=== PATIENT | male | born 1980 | race Caucasian/White ===

== ENCOUNTER 2025-01-17 18:56 | Emergency (ER) | payer MEDICAID, SELFPAY ==
[2025-01-17] VITALS (8 sets, daily range): BP systolic 128; BP diastolic 87; PULSE 65–82; RESP 15–27; TEMP 36.7; O2SAT 94–97; BMI 33.4
--- OUTSIDE RECORDS SUMMARY | 2025-01-17 18:58 | XMS_ITS | Clinical Summary ---
Author Organization [facility] Address [address] [place] [address] Care Team Providers Care Caustic Room Attendant Name Role Phone Pcp, No Unavailable Unavailable Jaydon Coleman Unavailable Christiano Carpenter DO Primary Care Provider [phone] Allergies Active Allergy Reactions Criticality Noted Date Comments Colchicine Stomach Upset 12/14/2023 Medications naproxen (NAPROSYN) 500 mg tabletIndicatio ns:History of gout Take 1 Tablet (500 mg) by mouth two times daily. 60 Tablet 1 11/29/2023 Active cyclobenzaprine (FLEXERIL) 10 mg tabletIndicatio ns:Acute midline low back pain without sciatica Take 1 Tablet (10 mg) by mouth at bedtime if needed for Muscle Spasm. 30 Tablet 5 08/02/2024 Active Active Problems Problem Noted Date Diagnosed Date Right lateral epicondylitis 12/12/2018 Immunizations Immunization Administration Dates Next Due Hepatitis B (Adult) 09/25/2005 Tdap 03/10/2023,12/05/2009 Family History Medical History Relation Name Comments Anesthesia Problem No Family History Blood Disease No Family History Social History Tobacco Use Types Packs/Day Years Used Date Smoking Tobacco: Former Cigarettes Smokeless Tobacco: Never Tobacco Cessation:Counseling Given: Not Answered Comments:The patient reports he quit smoking 200 days ago Antonio Rawls LPN .................... 08/02/2024 12:13 PM The patient also reports he quit drinking alcohol 55 days ago Antonio RuizBeto PORTILLO .................... 08/02/2024 12:13 PM Alcohol Use Standard Drinks/Week Comments Not Currently 0 (1 standard drink = 0.6 oz pur e alcohol) 5 per week PHQ-2 Answer Date Recorded PHQ-2 TOTAL SCORE 0 08/02/2024 Social Connections Answer Date Recorded Frequency of Communication with Friends and Fami ly Not on file 09/06/2021 Financial Resource Strain Answer Date R ecorded Difficulty of Paying Living Expenses Not on file 09/06/2021 Difficulty of Paying Living Expenses Not on file 09/06/2021 Interpersonal Safety Answer Date Record ed Are you being hit, kicked, p ushed or yelled at (see row info)? 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 Gender Identity Not on file Sexual Orientation Not on file Obstetrics History Last Filed Vital Signs Vital Sign Reading Time Taken Comments Blood Pressure 118/70 08/02/2024 12:14 PM DONOR SERVICES MANAGER Pulse 100 08/02/2024 12:14 PM DONOR SERVICES MANAGER Temperature 36.7 C (98.1 F) 06/18/2024 8:13 PM CDT Respiratory Rate 18 06/18/2024 8:13 PM CDT Oxygen Saturation 96% 08/02/2024 12:14 PM DONOR SERVICES MANAGER Inhaled Oxygen Concentration - - Weight 111.6 kg (246 lb) 08/02/2024 12:14 PM DONOR SERVICES MANAGER Height 188 cm (6' 2) 08/02/2024 12:14 PM DONOR SERVICES MANAGER Body Mass Index 31.58 08/02/2024 12:14 PM DONOR SERVICES MANAGER Plan of Treatment Health Maintenance Due Date Last Done Comments HIV for age 15-65 1997 Hepatitis C screening for age 18-79 2000 Lipids for age 35-44 2017 COVID-19 vaccine series ( season) 2024 Influenza Vaccine (Season Ended) 2025 BMI (ht and wt on same day) for age 18+ 08/02/2025 08/02/2024, 12/13/2023, 11/29/2023, Additional history exists Depression screening for age 12+ 08/02/2025 08/02/2024 Tetanus booster 03/10/2033 03/10/2023, 12/05/2009 Tdap Completed 03/10/2023, 12/05/2009 Pneumococcal series for age 6-49 Aged Out No longer eligible based on patient's age to complete this topic Insurance [facility] Care Teams Caustic Room Attendant Relationship Specialty [place] [id number] [place] [address] PCP - General Family Practice 08/01/24 Pcp, No . 08/12/17 Jaydon Coleman MBBS [facility] [place] [address] Rheumatology 12/21/23
[2025-01-17] MEDS: 0.9 % SODIUM CHLORIDE 1000 ml 1,000 ML IV ×2 (19:10→19:30)
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
[2025-01-17 19:27] LABS: Basophils Absolute Auto 0.02 K/uL (0.00-0.30); Basophils Percent Auto 0.3 % (0.0-3.0); Eosinophils Absolute Auto 0.18 K/uL (0.00-0.50); Eosinophils Percent Auto 2.8 % (0.0-7.0); Hematocrit* 40.6 % (37.0-53.0); Hemoglobin* 13.6 gm/dL (13.5-17.5); Immature Granulocytes Abs Auto 0.01 K/uL (0.00-0.30); Immature Granulocytes Pct Auto 0.2 %; Lymphocytes Percent Auto 44.7 % (20-44); Mean Corpuscular HGB Conc 34 gm/dL (32-36); Mean Corpuscular Hemoglobin 30 pg (26-34); Mean Corpuscular Volume 90 fL (80-100); Monocytes Percent Auto 7.1 % (0.0-11.0); Neutrophils Absolute Auto 2.89 K/uL (1.7-7.0); Neutrophils Percent Auto 44.9 % (42.0-72.0); Platelet Count* 260 K/uL (140-440); Red Blood Count* 4.49 m/uL (4.30-5.90); White Blood Count* 6.44 K/uL (4.50-11.00)
[2025-01-17 19:28] LABS: Slide Review Reflex No
[2025-01-17 19:40] LABS: Albumin* 4.5 g/dL (3.3-5.0); Chloride* 108 mmol/L (96-114); Sodium* 140 mmol/L (135-149)
[2025-01-17 19:42] LABS: Blood Urea Nitrogen* 18 mg/dL (5-24); Creatinine* 1.1 mg/dL (0.5-1.5); Est. Creatinine Clearance* 101.71; Estimated Glomerular Filt Rate 86 ml/min
[2025-01-17 19:43] LABS: Alanine Aminotransferase* 58 U/L (4-50); Alkaline Phosphatase* 58 U/L (40-150); Anion Gap 10 mEq/L (7-15); Aspartate Amino Transferase* 44 U/L (12-35); Bilirubin Total* 0.6 mg/dL (0.1-1.5); Calcium* 9.5 mg/dL (8.4-10.6); Carbon Dioxide* 22 mmol/L (20-32); Creatine Kinase* 302 U/L (54-186); Glucose* 123 mg/dL (60-115); Total Protein* 7.2 g/dL (6.0-8.3)
--- OUTSIDE RECORDS SUMMARY | 2025-01-17 19:57 | XMS_ITS | Clinical Summary ---
Author Organization [facility] Address [address] [place] [address] Care Team Providers Care Fusing Machine Operator Name Role Phone Pcp, No Unavailable Unavailable Jaydon Coleman Unavailable Christiano Carpenter DO Primary Care Provider [phone] Allergies Active Allergy Reactions Criticality Noted Date [...] on file Legal Sex Male 6:15 AM COMPUTER ASSEMBLER Gender Identity Not on file Sexual Orientation Not on file Obstetrics History Last Filed Vital Signs Vital Sign Reading Time Taken Comments Blood Pressure 118/70 08/02/2024 12:14 PM COMPUTER ASSEMBLER Pulse 100 08/02/2024 12:14 PM COMPUTER ASSEMBLER Temperature 36.7 C (98.1 F) 06/18/2024 8:13 PM CDT Respiratory Rate 18 06/18/2024 8:13 PM CDT Oxygen Saturation 96% 08/02/2024 12:14 PM COMPUTER ASSEMBLER Inhaled Oxygen Concentration - - Weight 111.6 kg (246 lb) 08/02/2024 12:14 PM COMPUTER ASSEMBLER Height 188 cm (6' 2) 08/02/2024 12:14 PM COMPUTER ASSEMBLER Body Mass Index 31.58 08/02/2024 12:14 PM COMPUTER ASSEMBLER Plan of Treatment Health Maintenance Due Date [...] patient's age to complete this topic Insurance [facility] Care Teams Fusing Machine Operator Relationship Specialty [place] [id number] [place] [address] PCP - General Family Practice 08/01/24 Pcp, No . 08/12/17 Jaydon Coleman MBBS [facility] [place] [address] Rheumatology 12/21/23
== END 2025-01-17 21:19 | disposition home or self-care (01) ==
PROVIDERS: Emergency Provider Emergency Medicine
DX: R55 Syncope and collapse (principal); T67.5XXA Heat exhaustion, unspecified, initial encounter; R94.5 Abnormal results of liver function studies
CPT/HCPCS: 36415; 80053; 82550; 84484; 85025; 93005; 96360; 99283; 99284; J7030

== ENCOUNTER 2025-03-28 17:41 | Emergency (ER) | payer OTHER, SELFPAY ==
--- OUTSIDE RECORDS SUMMARY | 2025-03-28 17:44 | XMS_ITS | Clinical Summary ---
Author Organization [facility] Address [address] [facility] [place] [address] Care Team Providers Care Scale Reclamation Tender Name Role Phone No Ref-Primary, Physician Primary Care Provider System, Provider Not In Unavailable Unavaila ble Allergies No known active allergies Medications oxyCODONE-aceta minophen (PERCOCET) 5-325 MG per tablet Take 1-2 tablets by mouth every 4 hours as needed for pain. 20 tablet 0 2 Active ibuprofen (ADVIL,MOTRIN) 600 MG tablet Take 1 tablet (600 mg) by mouth every 6 hours as needed for moderate pain 30 tablet 1 5 Active oxyCODONE IR (ROXICODONE) 5 MG tablet Take 1-2 tablets (5-10 mg) by mouth every 6 hours as needed for pain 12 tablet 8 Active sucralfate (CARAFATE) 1 GM/10ML suspension Take 10 mLs (1 g) by mouth 4 times daily 420 mL 1 8 Active oxyCODONE (ROXICODONE) 5 MG tablet Take 1 tablet (5 mg) by mouth every 6 hours as needed for pain No driving or operating heavy machinery while taking this medication. You may take a stool softener with this medication as it may cause constipation. 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 Gender Identity Not on file Sexual Orientation Not on file Last Filed Vital Signs Vital Sign Reading Time Taken Comments Blood Pressure 128/76 02/22/2021 1:15 PM CDT Pulse 54 02/22/2021 1:15 PM CDT Temperature 37.1 C (98.7 F) 02/22/2021 11:06 AM CDT Respiratory Rate 18 02/22/2021 11:06 AM CDT Oxygen Saturation 99% 02/22/2021 11:06 AM CDT Inhaled Oxygen Concentration - - Weight 113.4 kg (250 lb) 04/08/2018 11:01 AM CDT Height 190.5 cm (6' 3) 04/08/2018 11:01 AM CDT Body Mass Index 31.25 04/08/2018 11:01 AM CDT Plan of Treatment Not on file Care Teams Scale Reclamation Tender Relationship Specialty Start Date End Date No Ref-Primary, Physician PCP - General 04/16/14 System, Provider Not In 12/06/12
--- OUTSIDE RECORDS SUMMARY | 2025-03-28 17:44 | XMS_ITS | Clinical Summary ---
Author Organization [facility] Address [address] [place] [address] Care Team Providers Care News Specialist Name Role Phone Pcp, No Unavailable Unavailable Jaydon Coleman Unavailable Christiano Carpenter DO Primary Care Provider [phone] Allergies Active Allergy Reactions Criticality Noted Date Comments Colchicine Stomach Upset 12/14/2023 Medications naproxen (NAPROSYN) 500 mg tabletIndicatio ns:History of gout Take 1 Tablet (500 mg) by mouth two times daily. 60 Tablet 1 4 Active Additional Information Patient taking differently:500 mg Oral BID,Indications: PRN, Reported on 01/22/2025 cyclobenzaprine (FLEXERIL) 10 mg tabletIndicatio ns:Acute midline low back pain without sciatica Take 1 Tablet (10 mg) by mouth at bedtime if needed for Muscle Spasm. 30 Tablet 5 4 Active Active Problems Problem Noted Date Diagnosed Date Right lateral epicondylitis 12/12/2018 Encounters Date Type Department Care Team Description 01/22/2025 10:50 AM CDT Office Visit [facility] [place] [address] [place] [address] Rocky Rea MD Hospital F/U (Heat stroke, needs lab work done per ED enzymes are high. ) 01/22/2025 Travel 01/17/2025 Orders Only [facility] Scanner 1 scan: (1-Ord) [facility], EKG, 01/17/2025 01/17/2025 Orders Only [facility] Scanner 1 scan: (1-Ord) [facility], RESULTS, 01/17/2025 from Last 3 Months Immunizations Immunization Administration Dates Next Due Hepatitis B (Adult) 09/25/2005 Tdap 03/10/2023,12/05/2009 Family History Medical History Relation Name Comments Anesthesia Problem No Family History Blood Disease No Family History Social History Tobacco Use Types Packs/Day Years Used Date Smoking Tobacco: Former Cigarettes Smokeless Tobacco: Never Tobacco Cessation:Counseling Given: Not Answered Comments:The patient reports he quit smoking 200 days ago Antonio Sinai PORTILLO .................... 08/02/2024 12:13 PM The patient also reports he quit drinking alcohol 55 days ago Antonio Sinai PORTILLO .................... 08/02/2024 12:13 PM Alcohol Use Standard Drinks/Week Comments Not Currently 0 (1 standard drink = 0.6 oz pur e alcohol) 5 per week PHQ-2 Answer Date Recorded PHQ-2 TOTAL SCORE 0 08/02/2024 Social Connections Answer Date Recorded Do you often feel lonely or isolated from those around you? 0 01/22/2025 Financial Resource Strain Answer Date R ecorded Difficulty of Paying Living Expenses 3 01/22/2025 Difficulty of Paying Living Expenses Not on file 01/22/2025 Food Insecurity Answer Date Recorded Do you worry your food will run out before you are able to buy more? 1 01/22/2025 Transportation Needs Answer Date Record ed Does lack of transportation keep you from medica l appointments? 1 01/22/2025 Does lack of transportation keep you from work, meetings or getting things that you need? 1 01/22/2025 Housing Stability Answer Date Recorded What is your housing situation today? 1 01/22/2025 Interpersonal Safety Answer Date Record ed Are you being hit, kicked, p ushed or yelled at (see row info)? No 06/18/2024 Interpersonal Safety Abuse 12 - 18 Not on file 06/18/2024 Interpersonal Safety Ambulatory Vulnerability No t on file 06/18/2024 Utilities Answer Date Recorded Do you have trouble paying f or utilities (for example, heat, electricity, water, phone)? 1 01/22/2025 Sex and Gender Information Value Date Recorded Sex Assigned at Not on file Legal Sex Male 6:15 AM [employer] Gender Identity Not on file Sexual Orientation Not on file Obstetrics History Last Filed Vital Signs Vital Sign Reading Time Taken Comments Blood Pressure 118/62 01/22/2025 11:05 AM CDT Pulse 72 01/22/2025 11:05 AM CDT Temperature 36.7 C (98.1 F) 06/18/2024 8:13 PM CDT Respiratory Rate 18 06/18/2024 8:13 PM CDT Oxygen Saturation 97% 01/22/2025 11: 05 AM CDT Inhaled Oxygen Concentration - - Weight 117.8 kg (259 lb 9.6 oz) 025 11:05 AM CDT Height 189.5 cm (6' 2.61) 01/22/2025 1 1:05 AM CDT Body Mass Index 32.79 01/22/2025 11:05 AM CDT Plan of Treatment Health Maintenance Due Date Last Done Comments HIV for age 15-65 1997 Hepatitis C screening for age 18-79 2000 Hepatitis B series for 19+ (2 of 3 - 19+ 3-dose series) 10/23/2005 09/25/2005 Lipids for age 35-44 2017 COVID-19 vaccine series ( season) 2024 Influenza Vaccine (#1) 2025 Depression screening for age 12+ 08/02/2025 08/02/2024 BMI (ht and wt on same day) for age 18+ 01/22/2026 01/22/2025, 08/02/2024, 12/13/2023, Additional history exists Tetanus booster 03/10/2033 03/10/2023, 12/05/2009 Pneumococcal series for age 6-49 Aged Out No longer eligible based on patient's age to complete this topic Procedures Procedure Name Priority Date/Time Associated Diagnosis Comments URINALYSIS MACROSCOPIC - [facility] ONLY POC DIP ([facility]) Routine 01/22/2025 11:48 AM CDT Heat stroke, initial encounter D-DIMER,QUANTITATIVE Routine 01/22/2025 11:36 AM CDT Heat stroke, initial encounter FIBRINOGEN,QUANTITAT PATRICIA Routine 01/22/2025 11:36 AM CDT Heat stroke, initial encounter APTT Routine 01/22/2025 11:36 AM CDT Heat stroke, initial encounter PROTIME-INR Routine 01/22/2025 11:36 AM CDT Heat stroke, initial encounter CK TOTAL Routine 01/22/2025 11:36 AM CDT Heat stroke, initial encounter COMP METABOLIC PANEL Routine 01/22/2025 11:36 AM CDT Heat stroke, initial encounter CBC W PLT NO DIFF Routine 01/22/2025 11: 36 AM CDT Heat stroke, initial encounter SCAN-ELECTROCARDIOGR AM EKG 01/17/2025 12:00 AM CDT SCAN-LABORATORY REPORT 01/17/2025 12:00 AM CDT from Last 3 Months Results * POCT Urinalysis Dipstick Only [[id number]] (01/22/2025 11:48 AM CDT) COLOR Yellow Yellow Color 01/22/2025 11:51 AM CDT [facility] [place] [place] CLARITY Clear Clear Clarity 01/22/2025 11:51 AM CDT [facility] [place] [place] SPECIFIC GRAVITY,URINE 1.015 1.010, 1.015, 1.020, 1.025 01/22/2025 11:51 AM CDT [facility] [place] [place] PH,URINE 7.5 6.0, 7.0, 8.0, 5.5, 6.5, 7.5, 8.5 01/22/2025 11:51 AM CDT [facility] [place] [place] UROBILINOGEN,Q UALITATIVE Normal Normal EU/dl 01/22/2025 11:51 AM CDT [facility] [place] [place] PROTEIN, URINE Negative Negative mg/dL 01/22/2025 11:51 AM CDT [facility] [place] [place] GLUCOSE, URINE Negative Negative mg/dL 01/22/2025 11:51 AM CDT [facility] [place] [place] KETONES,URINE Negative Negative mg/dL 01/22/2025 11:51 AM CDT [facility] [place] [place] BILIRUBIN,URIN E Negative Negative 01/22/2025 11:51 AM CDT [facility] [place] [place] OCCULT BLOOD,URINE Negative Negative 01/22/2025 11:51 AM CDT [facility] [place] [place] NITRITE Negative Negative 01/22/2025 11:51 AM CDT [facility] [place] [place] LEUKOCYTE ESTERASE Negative Negative 01/22/2025 11:51 AM CDT [facility] [place] [place] Urine URINE SPECIMEN / Unknown Non-Blood / Unknown 01/22/2025 11:48 AM CDT 01/22/2025 11:48 AM CDT us Rocky Rea MD URINE Final Result [facility] [place] [place] [address] [place] [address], * CBC W PLT NO DIFF (01/22/2025 11:36 AM CDT) WHITE BLOOD CELL COUNT 5.7 3.8 - 10.8 Thousand/u L 01/23/2025 8:15 AM CDT [facility] RED BLOOD CELL COUNT 5.08 4.20 - 5.80 Million/uL 01/23/2025 8:15 AM CDT [facility] HEMOGLOBIN 15.3 13.2 - 17.1 g/dL 01/23/2025 8:15 AM CDT [facility] HEMATOCRIT 46.4 38.5 - 50.0 % 01/23/2025 8:15 AM CDT [facility] MCV 91.3 80.0 - 100.0 fL 01/23/2025 8:15 AM CDT [facility] MCH 30.1 27.0 - 33.0 pg 01/23/2025 8:15 AM CDT [facility] MCHC 33.0 32.0 - 36.0 g/dL 01/23/2025 8:15 AM CDT [facility] Comment: For adults, a slight decrease in the calculated MCHC value (in the range of 30 to 32 g/dL) is most likely not clinically significant; however, it should be interpreted with caution in correlation with other red cell parameters and the patient's clinical condition. RDW 13.7 11.0 - 15.0 % 01/23/2025 8:15 AM CDT [facility] PLATELET COUNT 295 140 - 400 Thousand/u L 01/23/2025 8:15 AM CDT [facility] MPV 11.0 7.5 - 12.5 fL 01/23/2025 8:15 AM CDT [facility] Blood BLOOD SPECIMEN / Unknown Non-Lab Venipuncture / Unknown 01/22/2025 11:36 AM CDT 01/22/2025 11:36 AM CDT us Rocky Rea MD HEMATOLOGY Final Result [facility] [address] [address], * APTT (01/22/2025 11:36 AM CDT) [facility] Signature PARTIAL THROMBOPLASTIN TIME, ACTIVATED 26 23 - 32 sec 01/23/2025 7:38 AM CDT [facility] Comment: This test has not been validated for monitoring unfractionated heparin therapy. For testing that is validated for this type of therapy, please refer to the Heparin Anti-Xa assay (test code 90677). For additional information, please refer to http://education.TCHO.Vizify/faq/JAU396 (This link is being provided for informational/educational purposes only.) Blood BLOOD SPECIMEN / Unknown Non-Lab Venipuncture / Unknown 01/22/2025 11:36 AM CDT 01/22/2025 11:36 AM CDT us Rocky Rea MD HEMATOLOGY Final Result [facility] [address] [address], * (ABNORMAL) PROTIME-INR (01/22/2025 11:36 AM CDT) INR 0.9 <1.3 01/22/2025 11:07 PM CDT [facility] PROTIME 10.5(L) 10.6 - 12.4 sec 01/22/2025 11:07 PM CDT [facility] Blood BLOOD SPECIMEN / Unknown Non-Lab Venipuncture / Unknown 01/22/2025 11:36 AM CDT 01/22/2025 11:36 AM CDT Narrative [facility] - 01/22/2025 11:07 PM CDT Therapeutic Range 2.0-3.0 for most anticoagulated patients 2.5-3.5 or 4.0 for high risk patients The INR is only used for patients on stable oral anticoagulant therapy. It makes no significant contribution to the diagnosis or treatment of patients whose Protime is prolonged for other reasons. INR results are increased when heparin levels exceed 1.0 U/mL, which corresponds to an aPTT >125 seconds if the patient is on UFH. us Rocky Rea MD HEMATOLOGY Final Result Performing Organization Address City/[facility]/ZIP Co de Phone Number [facility] [address] [place] [address], * FIBRINOGEN,QUANTITATIVE (01/22/2025 11:36 AM CDT) FIBRINOGEN ACTIVITY, CLAUSS 297 175 - 425 mg/dL 01/23/2025 11:10 AM CDT [facility] Blood BLOOD SPECIMEN / Unknown Non-Lab Venipuncture / Unknown 01/22/2025 11:36 AM CDT 01/22/2025 11:36 AM CDT us Rocky Rea MD HEMATOLOGY Final Result [facility] [address] [place] [address], * (ABNORMAL) D-DIMER,QUANTITATIVE (01/22/2025 11:36 AM CDT) D-DIMER, QUANTITATIVE 0.52(H) <0.50 mcg/mL FEU 01/23/2025 11:10 AM CDT [facility] Comment: Elevated D-dimer levels are associated with DIC, malignancies, inflammation, sepsis, surgery, trauma, and . A D-dimer result less than 0.5 mcg/mL FEU, in conjunction with a non-high clinical pre-test probability assessment model, excludes deep vein thrombosis and pulmonary embolism. However, since D-dimer values increase with age, the [employer] recommends an age-adjusted cut-off value in patients older than 50. The calculation for an age adjusted cut-off value is age (years) x 0.01 mcg/mL FEU. For example, the cut-off for a 70-year-old patient would be 70 x 0.01 mcg/mL FEU. For additional information, please refer to http://education.Hivext Technologies/faq/OZE185 (This link is being provided for informational/educational purposes only.) Blood BLOOD SPECIMEN / Unknown Non-Lab Venipuncture / Unknown 01/22/2025 11:36 AM CDT 01/22/2025 11:36 AM CDT Rocky Rea MD HEMATOLOGY Final Result [facility] [address] [place] [address], * CK TOTAL (01/22/2025 11:36 AM CDT) CREATINE KINASE, TOTAL 107 26 - 366 U/L 01/23/2025 11:45 AM CDT [facility] Blood BLOOD SPECIMEN / Unknown Non-Lab Venipuncture / Unknown 01/22/2025 11:36 AM CDT 01/22/2025 11:36 AM CDT Rocky Rea MD CHEMISTRY Final Result [facility] [address] [address], * (ABNORMAL) COMP METABOLIC PANEL (01/22/2025 11:36 AM CDT) SODIUM 139 135 - 146 mmol/L 01/23/2025 11:45 AM CDT [facility] POTASSIUM 4.5 3.5 - 5.3 mmol/L 01/23/2025 11:45 AM CDT [facility] CHLORIDE 106 98 - 110 mmol/L 01/23/2025 11:45 AM CDT [facility] CARBON DIOXIDE 25 20 - 32 mmol/L 01/23/2025 11:45 AM CDT [facility] GLUCOSE 86 65 - 99 mg/dL 01/23/2025 11:45 AM CDT [facility] Comment: Fasting reference interval CALCIUM 9.6 8.6 - 10.3 mg/dL 01/23/2025 11:45 AM CDT [facility] CREATININE 0.88 0.60 - 1.29 mg/dL 01/23/2025 11:45 AM CDT [facility] BUN/CREATININE RATIO SEE NOTE: 6 - 22 (calc) 01/23/2025 11:45 AM CDT [facility] Comment: Not Reported: BUN and Creatinine are within reference range. EGFR 110 > OR = 60 mL/min/1. 73m2 01/23/2025 11:45 AM CDT [facility] ALBUMIN 4.6 3.6 - 5.1 g/dL 01/23/2025 11:45 AM CDT [facility] PROTEIN, TOTAL 7.4 6.1 - 8.1 g/dL 01/23/2025 11:45 AM CDT [facility] BILIRUBIN, TOTAL 0.4 0.2 - 1.2 mg/dL 01/23/2025 11:45 AM CDT [facility] ALKALINE PHOSPHATASE 75 36 - 130 U/L 01/23/2025 11:45 AM CDT [facility] ALT 48(H) 9 - 46 U/L 01/23/2025 11:45 AM CDT [facility] AST 28 10 - 40 U/L 01/23/2025 11:45 AM CDT [facility] UREA NITROGEN (BUN) 12 7 - 25 mg/dL 01/23/2025 11:45 AM CDT [facility] GLOBULIN 2.8 1.9 - 3.7 g/dL (calc) 01/23/2025 11:45 AM CDT [facility] ALBUMIN/GLOBULI N RATIO 1.6 1.0 - 2.5 (calc) 01/23/2025 11:45 AM CDT [facility] Blood BLOOD SPECIMEN / Unknown Non-Lab Venipuncture / Unknown 01/22/2025 11:36 AM CDT 01/22/2025 11:36 AM CDT us Rokcy Rea MD CHEMISTRY Final Result [facility] [address] [address], * SCAN-LABORATORY REPORT (01/17/2025 12:00 AM CDT) us Scanner OTHER Final Result * SCAN-ELECTROCARDIOGRAM EKG (01/17/2025 12:00 AM CDT) us Scanner OTHER Final Result from Last 3 Months Insurance [facility] Care Teams News Specialist Relationship Specialty [place] [address] [facility] [place] [address] PCP - General Family Practice 08/01/24 Pcp, No . 08/12/17 Jaydon Coleman MBBS [address] [place] [address] Rheumatology 12/21/23
[2025-03-28 17:45] VITALS: BP 145/77; PULSE 72; RESP 18; TEMP 36.7; O2SAT 97; BMI 32.5
--- NOTE | 2025-03-28 18:15 | ED.GENADULT ---
HPI - General Adult General Date Seen: 03/28/25 Chief complaint: Extremity Pain/Injury, Lower Stated complaint: R knee injury Time Seen by Provider: 03/28/25 17:46 History of Present Illness HPI narrative: 44-year-old gentleman presenting to the ER today for right knee injury. He stepped out of his truck and stepped wrong on his way out. His truck is lifted so it is along step down from the truck cab to the ground. He had abrupt onset of pain with sharp shooting pain in the right knee. His pain is most prominent in the right anterior knee, in front of the knee cap. He says he has not had any trouble with his right knee lately or any other preceding pain. He did have an injury to his left knee a couple of days ago. He has no history of right knee surgery. No diabetes or immunosuppression. Related Data Home Medications ?Medication ?Instructions ?Recorded ?Confirmed cyclobenzaprine 10 mg tablet 10 mg PO QPM 01/17/25 01/17/25 naproxen 500 mg tablet 500 mg PO BID 01/17/25 01/17/25 Allergies Allergy/AdvReac Type Severity Reaction Status Date / Time No Known Drug Allergies [facility]25 [facility] Social History Smoking Status: Never smoker Do you use any of these nicotine containing products: None How often do you have a drink containing alcohol: never AUDIT-C Alcohol total score: 0 Non-prescribed substance use: marijuana (any form) service: No Exam Narrative: Exam Narrative: Constitutional: Appears well-developed and well-nourished. Alert. Conversant. Non toxic. HENT: Head: Atraumatic. Nose: Nose normal. Mouth/Throat: Oral mucosa is clear and moist. no trismus. No trismus. Mucous membranes moist. Eyes: Conjunctivae normal. EOM normal. Pupils equal, round, and reactive to light. No scleral icterus. Neck: Normal range of motion. Neck supple. No tracheal deviation present. Cardiovascular: Normal rate, regular rhythm. . Symmetric PT artery pulses Pulmonary/Chest: Effort normal. No stridor. No respiratory distress. Breathing easily Musculoskeletal: RUE: Normal range of motion. No tenderness. No deformity LUE: Normal range of motion. No tenderness. No deformity RLE: Hip nontender. Quadriceps, femur, hamstring nontender. Knee: Subtle anterior swelling which seems to be localized over the prepatellar soft tissue. I do not really see any effacement of the fossa medial and lateral to the proximal to the patella to suggest a knee joint effusion. Soft tissue of the anterior E feels slightly warm to the touch. No obvious redness. Range of motion is from full extension to about 90? of flexion, limited by pain. No obvious locking. After x-rays are negative ligamentous exam is undertaken and there is no evidence for laxity of the ACL, MCL, LCL, PCL. No tenderness over the proximal fibula, tibial tuberosity. Gastrocs, Achilles, ankle, foot are nontender. Normal ankle plantar flexion and dorsiflexion. Normal toe wiggling. Intact distal sensory function. LLE: Normal range of motion. No edema. No tenderness. No deformity Lymph: No ascending lymphangitis Neurological: Alert and oriented to person, place, and time. Normal strength. CN II-VII intact. No sensory deficit. GCS eye subscore is 4. GCS verbal subscore is 5. GCS motor subscore is 6. Normal coordination Skin: Skin is warm and dry. No rash noted. No pallor. Normal capillary refill. Psychiatric: Normal mood. Normal affect. Const: Vital Signs, click to edit/add: Vital Signs - 24 hr 03/28/25 17:45 Temperature 98.0 F Pulse Rate [Pulse Oximeter] 72 Respiratory Rate 18 Blood Pressure [Ri ght Upper Arm] 145/77 H Pulse Oximetry 97 Oxygen Delivery Me thod Room Air Course Course ED Course: Recheck-patient back from x-ray. Repeat knee exam performed with ligamentous exam. Patient definitely has warmth to touch on the prepatellar soft tissue and very subtle redness is developing. This had not been present on my 1st exam. No fluctuance. Vital Signs Vital signs: Initial Vital Signs Temperature 98.0 F 03/28/25 17:45 Temperature Source Temporal Artery Scan 03/28/25 17:45 Pulse Rate 72 03/28/25 17:45 Pulse Rhythm Regular 03/28/25 17:45 Respiratory Rate 18 03/28/25 17:45 Blood Pressure 145/77 H 03/28/25 17:45 Blood Pressure Mean 99 03/28/25 17:45 Blood Pressure Position Sitting 03/28/25 17:45 Pulse Oximetry 97 03/28/25 17:45 Oxygen Delivery Method Room Air 03/28/25 17:45 Vital Signs Temperature 98.0 F 03/28/25 17:45 Pulse Rate 72 03/28/25 17:45 Respiratory Rate 18 03/28/25 17:45 Blood Pressure 145/77 H 03/28/25 17:45 Pulse Oximetry 97 03/28/25 17:45 Oxygen Delivery Method Room Air 03/28/25 17:45 Temperature 98.0 F 03/28/25 17:45 Pulse Rate 72 03/28/25 17:45 Respiratory Rate 18 03/28/25 17:45 Blood Pressure 145/77 H 03/28/25 17:45 Pulse Oximetry 97 03/28/25 17:45 Oxygen Delivery Method Room Air 03/28/25 17:45 Medications Administered Medications: Discontinued Medications Generic Name Dose Route Start Last Admin Trade Name Freq PRN Reason Stop Dose Admin Hydrocodone Bitart/Acetaminophen 2 tab 03/28/25 18:23 03/28/25 18:34 Hydrocodone-Acetamin 5-325 Mg 1 Tab PO 03/28/25 18:24 2 tab ONCE ONE Administration Ondansetron HCl 4 mg 03/28/25 18:23 03/28/25 18:35 Ondansetron Odt 4 Mg Tab PO 03/28/25 18:24 4 mg ONCE ONE Administration Medical Decision Making MDM Narrative Medical decision making narrative: 45-year-old male presenting to the ER today for right knee pain that began a roughly a couple of hours prior to arrival this afternoon. He says it started when he stepped awkwardly down out of his pickup truck. His pickup is quite a bit elevated from the ground and has ?lifts?. He denies any specific twisting or fall. His pain is primarily in the anterior knee. X-rays are obtained and are negative for any acute fracture. Differential would include potential patellar dislocation but there is no evidence for any persistent dislocation on my exam and no evidence for patellar fracture on the x-ray. Differential would also include ligamentous injury or meniscus injury. My exam does not show any definitive evidence for that, but given the potential for muscular guarding, those injuries cannot be completely ruled out. Patient will be placed into a knee immobilizer. Recommend outpatient follow-up orthopedics for repeat knee exam within 3-5 days. If persistent concern remains, patient may need an MRI. Interestingly the patient does have subtle warmth of the prepatellar soft tissue and did have all the small amount of redness there while he was here in the ER. This raises concern for an evolving prepatellar bursitis. Patient denies any antecedent pain or injury to the knee. He does not do any activities that require him to crawl around on his hands and knees. 1 would not expect a prepatellar bursitis to be triggered by an awkward step out of a pickup truck. However on my exam, there is definite redness and warmth there. I do not think this represents a diffuse knee joint infection because there is no diffuse swelling and no joint effusion on my exam. Will start the patient on oral cephalexin to cover for a possible, early case of prepatellar bursitis. Discussed the diagnostic ambiguity and potential for worsening infection, developing septic joint. Precautions for return were carefully reviewed with the patient and his . Need for follow-up reviewed. Questions answered. Instymeds prescriptions for cephalexin 500 q.i.d. for 7 days. [place]-10 tablets. Opiate precautions reviewed. Imaging Data XR Right knee: Attestation: I have reviewed the pertinent imaging results. My impression: no fx Radiologist's impression: IMPRESSION: No acute fractures or dislocation. Discharge Plan Discharge Clinical Impression: Bursitis, prepatellar, Acute pain of right knee Patient Disposition: Home, Self-Care Instructions: Knee Bursitis (ED), Knee Pain (ED) Additional Instructions: As we discussed, I do not know the cause of your knee pain for sure. Your x-rays look good. Nothing is broken. However, I am suspicious that you are developing an infection called ?prepatellar bursitis. ? This is an infection of the skin in the soft tissue on the front part of your knee (in front of the knee cap). It can cause pain, swelling, redness, warmth, and sometimes fever. Please start on the antibiotic tonight and take it 4 times daily for 1 week. The antibiotic is called ?cephalexin. ? Monitor the area of red skin on the front of your knee. If the red area is getting larger, or if you have worsening swelling, worsening pain, fever, please come back to the ER right away. If your knee is not completely healed by Wednesday, please follow-up with the orthopedic clinic for recheck. To make an ER follow-up visit with the [facility] call [phone] However, since your knee pain started when you stepped down out of the truck, I cannot completely rule out other injury to your knee such as a knee ligament sprain or meniscus injury. Please wear the knee immobilizer to protect your knee until your knee is either completely healed, or you have a recheck with orthopedics. Remember, if you have worsening pain, redness, swelling, or fever, come back to the ER right away. Use the prescription pain killer only if needed. Be careful because prescription pain meds can be addictive, they also cause drowsiness, nausea, dizziness, constipation. You should not operate machinery or drive a vehicle for 6 hours after taking a pain pill. Prescriptions: No Action cyclobenzaprine 10 mg tablet 10 mg PO QPM naproxen 500 mg tablet 500 mg PO BID Follow Up/Referrals: Provider,Not a Local [Primary Care Provider, Family Practice] Stand Alone Forms: Work/School Release, [facility] Info Instructions
--- NOTE | 2025-03-28 18:23 | CRLHL7_ITS ---
For Patients: As a result of the Century Cures Act, medical imaging exams and procedure reports are released immediately into your electronic medical record. You may view this report before your referring provider. If you have questions, please contact your health care provider. INDICATION: Trauma. TECHNIQUE: Right knee radiographs, 3 views. COMPARISON: None. FINDINGS: No acute fractures or dislocation. The joint spaces are preserved. No significant joint effusion. No significant soft tissue edema or radiopaque foreign bodies. IMPRESSION: No acute fractures or dislocation. Dictated by Migue Whitman MD @ 03/28/2025 7:11:14 PM (Electronically Signed)
[2025-03-28] MEDS: HYDROCODONE-ACETAMIN 5-325 MG 1 TAB 2 TAB PO (18:34)
[2025-03-28] MEDS: ONDANSETRON ODT 4 MG TAB PO (18:35)
== END 2025-03-28 19:57 | disposition home or self-care (01) ==
PROVIDERS: Emergency Provider Emergency Medicine
DX: M70.41 Prepatellar bursitis, right knee (principal); X50.1XXA Overexertion from prolonged static or awkward postures, initial encounter
CPT/HCPCS: 73562; 99283; A9270

== ENCOUNTER 2025-06-17 15:13 | Emergency (ER) | payer MEDICAID, SELFPAY ==
--- OUTSIDE RECORDS SUMMARY | 2025-06-17 15:15 | XMS_ITS | Clinical Summary ---
Author Organization [facility] Address [address] 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
--- OUTSIDE RECORDS SUMMARY | 2025-06-17 15:15 | XMS_ITS | Clinical Summary ---
Author Organization [facility] Address [address] [place] [id number] Care Team Providers Care Curatorial Specialist Name Role Phone Pcp, No Unavailable Unavailable Jaydon Coleman Unavailable Christiano Carpenter DO Primary Care Provider [phone] Allergies Active Allergy Reactions Criticality Noted Date [...] Encounters Date Type Department Care Team Description 06/04/2025 [place] [facility] [place] [address] [place] [address] Maranda Carpenter MD Refill Request (Naproxen) from Last 3 Months Immunizations Immunization Administration [...] quit smoking 200 days ago Antonio Rawls METAL CUTTER .................... 08/02/2024 12:13 PM The patient also reports he quit drinking alcohol 55 days ago Antonio Rawls METAL CUTTER .................... 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 Gender Identity Not on file Sexual [...] 3 - 19+ 3-dose series) 10/23/2005 09/25/2005 HPV series for age 9-45 (1 - 3-dose SCDM series) 2009 Lipids for age 35-44 2017 COVID-19 vaccine series ( season) 2025 Influenza Vaccine (#1) 2025 Depression screening for age 12+ 08/02/2025 08/02/2024 BMI (ht and wt on same day) for age 18+ 01/22/2026 01/22/2025, 08/02/2024, 12/13/2023, Additional history exists Tetanus booster 03/10/2033 03/10/2023, 12/05/2009 RSV vaccine for adults or (1 - 1-dose 75+ series) 2057 Pneumococcal series for age 6-49 Aged Out No longer eligible based on patient's age to complete this topic Insurance [facility] Care Teams Curatorial Specialist Relationship Specialty [place] [id number] [place] [address] PCP - General Family Practice 08/01/24 Pcp, No . 08/12/17 Jaydon Coleman MBBS [facility] [place] [address] Rheumatology 12/21/23
[2025-06-17 15:24] VITALS: BP 125/83; PULSE 80; RESP 20; TEMP 36.5; O2SAT 95; BMI 32.7
--- NOTE | 2025-06-17 16:00 | ED.GENADULT ---
HPI - General Adult General Chief complaint: Extremity Pain/Injury, Upper Stated complaint: Both Elbow pain Time Seen by Provider: 06/17/25 15:58 History of Present Illness HPI narrative: Arrives with complaints of bilateral elbow pain, right greater than left, which has been present for the past 4- 5 months. Denies injury to elbows, taking muscle relaxants at home without relief. Alert and oriented, ABCs intact. 44-year-old man presenting to the emergency department concern of right greater than left elbow pain. Seen last in this emergency department 3 months ago for a prepatellar bursitis Primary problem though seems to be bilateral elbow pain right greater than left. Is right-hand dominant but both quite painful. Describes the lateral epicondylar area pain and medial on left but more severe on the right with a history of possibly prolotherapy on the lateral epicondylar area and now has progressed to the medial epicondyle. He does work in a [employer] service and is form in. He though is really unable to work be on light duty. It sounds as though original injury or problem may have been work related. He says he can't sleep for the pain. Flexeril helps him get to sleep somewhat but it does not really help with the pain. Trying ice packs warm packs lidocaine patch is gels. Ran out of naproxen. Hoping that maybe could get a referral to Orthopedics. Had been treated before at [facility]. An injection on I think the right lateral epicondyle was helpful temporarily in the past. Is hoping to receive maybe an MRI. Is just unsure where to go next and he is worried of losing his house at this point. Uses arm sleeves in braces, offloading forearm strap. He feels that it might be time for surgery given that a friend of his did benefit greatly. He has continued to do his exercises. Related Data Home Medications ?Medication ?Instructions ?Recorded ?Confirmed cyclobenzaprine 10 mg tablet 10 mg PO QPM 01/17/25 06/17/25 naproxen 500 mg tablet 500 mg PO BID 01/17/25 06/17/25 Previous Rx's ?Medication ?Instructions ?Recorded naproxen sodium 550 mg tablet 550 mg PO Q12H PRN pain #30 tabs 06/17/25 diclofenac sodium 3 % topical gel 1 applic topical BID PRN #100 grams 06/19/25 Allergies Allergy/AdvReac Type Severity Reaction Status Date / Time No Known Drug Allergies Allergy Verified 06/17/25 15:23 Review of Systems Status of ROS: Reports: 6 or more systems reviewed and unremarkable except as noted in History and below [facility] Social History Smoking Status: Never smoker Do you use any of these nicotine containing products: None How often do you have a drink containing alcohol: never AUDIT-C Alcohol total score: 0 Non-prescribed substance use: marijuana (any form) service: No Exam Narrative: Exam Narrative: Large man. Rather tired. Heavily tattooed. Examination of the left elbow is without erythema or swelling but most tender about the medial epicondyle. The right elbow quite tender to bilateral epicondyles. Heart in regular rate and rhythm. Const: Vital Signs, click to edit/add: Vital Signs - 24 hr 06/17/25 15:24 Temperature 97.7 F Pulse Rate [Pulse Oximeter] 80 Respiratory Rate 20 Blood Pressure [Ri ght Upper Arm] 125/83 Pulse Oximetry 95 Oxygen Delivery Me thod Room Air Documenting provider has reviewed patient's vital signs: yes Course Vital Signs Vital signs: Initial Vital Signs Temperature 97.7 F 06/17/25 15:24 Temperature Source Temporal Artery Scan 06/17/25 15:24 Pulse Rate 80 06/17/25 15:24 Respiratory Rate 20 06/17/25 15:24 Blood Pressure 125/83 06/17/25 15:24 Blood Pressure Mean 97 06/17/25 15:24 Pulse Oximetry 95 06/17/25 15:24 Oxygen Delivery Method Room Air 06/17/25 15:24 Vital Signs Temperature 97.7 F 06/17/25 15:24 Pulse Rate 80 06/17/25 15:24 Respiratory Rate 20 06/17/25 15:24 Blood Pressure 125/83 06/17/25 15:24 Pulse Oximetry 95 06/17/25 15:24 Oxygen Delivery Method Room Air 06/17/25 15:24 Temperature 97.7 F 06/17/25 15:24 Pulse Rate 80 06/17/25 15:24 Respiratory Rate 20 06/17/25 15:24 Blood Pressure 125/83 06/17/25 15:24 Pulse Oximetry 95 06/17/25 15:24 Oxygen Delivery Method Room Air 06/17/25 15:24 Medical Decision Making MDM Narrative Medical decision making narrative: No swelling or inflammatory change to suggest infectious etiology. I do not have MRI capability today. I do not think I can benefit much with available imaging. Would encourage close follow-up with Orthopedics or Sports Medicine at coordinated care through primary care. Discussed pain management needs. Would also consider topical NSAIDs. See patient discharge plan for further discussion I am sorry this has been happening to you. Yes I would in courage you to message your primary care provider. I will send in some more naproxen for you for now. I probably would continue to use ice packs frequently at rest. Consider gently wrapping your elbow with soft padding to avoid minor bumps. The included 6 in Marco wraps might be helpful. I have gone to the [employer] website. Selecting the [place] location you can see from the dropdowns on the left side how to isolate who are orthopedists specializing in the elbow or otherwise sports medicine. I would try to schedule with one of each. Looks like a tab on the upper right is how you begin online scheduling. You should be able to schedule with [facility] without primary care referral. Another way in would be to go to their Urgent Care directly in the next couple of days. They will probably want to see you regardless before scheduling an MRI but I would also message your primary care provider, as we talked about and she might be able to get that ball rolling for you with an MRI at least. See if you can do all of this messaging today. Medical Records Medical records reviewed: Yes I reviewed the patient's medical records Discharge Plan Discharge Clinical Impression: Lateral epicondylitis, Medial epicondylitis Patient Disposition: Home w/ Parent or Adult Condition: Stable Additional Instructions: I am sorry this has been happening to you. Yes I would in courage you to message your primary care provider. I will send in some more naproxen for you for now. I probably would continue to use ice packs frequently at rest. Consider gently wrapping your elbow with soft padding to avoid minor bumps. The included 6 in Marco wraps might be helpful. I have gone to the [employer] website. Selecting the [place] location you can see from the dropdowns on the left side how to isolate who are orthopedists specializing in the elbow or otherwise sports medicine. I would try to schedule with one of each. Looks like a tab on the upper right is how you begin online scheduling. You should be able to schedule with [facility] without primary care referral. Another way in would be to go to their Urgent Care directly in the next couple of days. They will probably want to see you regardless before scheduling an MRI but I would also message your primary care provider, as we talked about and she might be able to get that ball rolling for you with an MRI at least. See if you can do all of this messaging today. Prescriptions: New naproxen sodium 550 mg tablet 550 mg PO Q12H PRN (Reason: pain) Qty: 30 1RF diclofenac sodium 3 % gel 1 applic topical BID PRNQty: 100 0RF No Action cyclobenzaprine 10 mg tablet 10 mg PO QPM naproxen 500 mg tablet 500 mg PO BID Follow Up/Referrals: Provider,Not a Local [Primary Care Provider, Family Practice] Stand Alone Forms: [employer] Info Instructions
== END 2025-06-17 16:55 | disposition home or self-care (01) ==
LOC: ED 16:44
PROVIDERS: Emergency Provider Family Medicine
DX: M77.11 Lateral epicondylitis, right elbow (principal); M77.01 Medial epicondylitis, right elbow; M77.02 Medial epicondylitis, left elbow
CPT/HCPCS: 99283; 99284